=== PATIENT | female | born 1990 | race Caucasian/White ===

== ENCOUNTER 2020-08-10 10:11 | Outpatient (CLI) | payer MEDICAID ==
[~2020-08-10] VITALS: Ht 170.2 cm; Wt 69.5 kg
== END 2020-08-10 10:49 | disposition home or self-care (01) ==
LOC: LDOP 10:11
PROVIDERS: ATTEND Student in an Organized Health Care Education/Training Program
DX: O26.852 Spotting complicating pregnancy, second trimester (principal); Z3A.27 27 weeks gestation of pregnancy
CPT/HCPCS: 99211; G0463

== ENCOUNTER 2020-10-24 16:36 | Outpatient (CLI) | payer MEDICAID ==
[~2020-10-24] VITALS: Ht 172.7 cm; Wt 82.0 kg
== END 2020-10-24 17:21 | disposition home or self-care (01) ==
LOC: LDOP 16:36
PROVIDERS: ATTEND Student in an Organized Health Care Education/Training Program
DX: O42.92 Full-term premature rupture of membranes, unspecified as to length of time between rupture and onset of labor (principal); Z3A.37 37 weeks gestation of pregnancy
CPT/HCPCS: 59025; 84112

== ENCOUNTER 2020-11-01 08:22 | Inpatient (IN) | payer MEDICAID ==
[~2020-11-01] VITALS: Ht 170.2 cm; Wt 81.8 kg
[2020-11-02] MEDS ORDERED: OXYTOCIN 30U/ 0.9% NaCL 500ML 500 ML IV PRN (08:00)
[2020-11-02] MEDS ORDERED: TERBUTALINE 1 MG/ML, 1ML SQ PRN (08:00)
[2020-11-02] MEDS ORDERED: OXYTOCIN 30U/ 0.9% NaCL 500ML 500 ML IV ONE (08:00)
[2020-11-02] MEDS ORDERED: ONDANSETRON 2MG/ML, 2ML IVPush PRN ×2 (08:00→19:30)
[2020-11-02] MEDS ORDERED: SODIUM CHLORIDE FLUSH 10ML SYR IVF PRN (08:00)
[2020-11-02] MEDS ORDERED: TERBUTALINE 1 MG/ML, 1ML IVPush PRN (08:00)
[2020-11-02] MEDS ORDERED: FENTANYL PF 100 MCG/2ML IV PRN (08:00)
[2020-11-02] MEDS ORDERED: FENTANYL PF 100 MCG/2ML IVPush PRN (08:00)
[2020-11-02] MEDS ORDERED: MISOPROSTOL 25 MCG TABLET VG PRN (08:00)
[2020-11-02] MEDS ORDERED: D5%-LACTATED RINGERS 1,000 ML IV SCH (08:00)
[2020-11-02] MEDS: LACTATED RINGERS 1,000 ML IV SCH ×2 (08:00→18:33)
[2020-11-02] MEDS ORDERED: CALCIUM CARBONATE 500 MG TAB.CHEW PO PRN (08:00)
[2020-11-02] MEDS ORDERED: MISOPROSTOL 25 MCG TABLET ONE (08:11)
[2020-11-02] MEDS ORDERED: NEWBORN KIT ONE (08:12)
[2020-11-02 08:14] LABS: BASOPHILS % (AUTO) 1 % (0-1); EOSINOPHILS % (AUTO) 1 % (1-7); LYMPHOCYTES % (AUTO) 22 % (22-44); MEAN CORPUSCULAR HEMOGLOBIN 30.3 pg (27.0-34.8); MEAN CORPUSCULAR HGB CONC 33.6 g/dL (32.4-35.8); MEAN PLATELET VOLUME 8.4 fL (7.4-10.4); MONOCYTES % (AUTO) 6 % (2-9); NEUTROPHILS % (AUTO) 70 % (42-75); PLATELET COUNT 154 x10^3/uL (130-400); RED CELL DISTRIBUTION WIDTH 16.7 % (9.6-15.2)
[2020-11-02 08:48] LABS: AMPHETAMINE SCREEN, URINE Negative (Negative); BARBITURATE SCREEN, URINE Negative (Negative); BENZODIAZEPINE SCREEN, URINE Negative (Negative); CANNABINOID SCREEN, URINE Negative (Negative); COCAINE SCREEN, URINE Negative (Negative); METHADONE SCREEN, URINE Negative (Negative); OPIATE SCREEN, URINE Negative (Negative)
[2020-11-02] MEDS: PLEASE ENTER HEIGHT AND WEIGHT MC SCH ×2 (09:00→17:00)
[2020-11-02 09:19] VITALS: BP 113/61
[2020-11-02] MEDS ORDERED: BUPIVACAINE 0.25% ONE (18:31)
[2020-11-02] MEDS ORDERED: FENTANYL/BUPIV./NS/PF 250 ML EPIDCONT ONE (18:31)
[2020-11-02] MEDS ORDERED: LACTATED RINGERS 1,000 ML IVBOLUS PRN (19:30)
[2020-11-02] MEDS ORDERED: NALOXONE 0.4 MG/ML, 1ML IVPush PRN (19:30)
[2020-11-02] MEDS ORDERED: DIPHENHYDRAMINE 50 MG/ML, 1ML IVPush PRN (19:30)
[2020-11-02] MEDS ORDERED: FENTANYL/BUPIV./NS/PF 250 ML EPIDCONT SCH (19:30)
[2020-11-02] MEDS ORDERED: EPHEDRINE 50 MG/ML, 1ML IVPush PRN (19:30)
[2020-11-02] MEDS ORDERED: LACTATED RINGERS 1,000 ML IV SCH (19:30)
[2020-11-03] MEDS: PLEASE ENTER HEIGHT AND WEIGHT MC SCH (01:00)
[2020-11-03] MEDS ORDERED: SIMETHICONE 80 MG CHEW TAB PO PRN (03:00)
[2020-11-03] MEDS: OXYTOCIN 30U/ 0.9% NaCL 500ML 500 ML IV SCH ×3 (03:00→23:00)
[2020-11-03] MEDS ORDERED: ACETAMINOPHEN 325 MG TABLET PO PRN (03:00)
[2020-11-03 03:30] VITALS: BP 108/72
[2020-11-03] MEDS: IBUPROFEN 600 MG TABLET PO PRN ×3 (03:55→21:04)
[2020-11-03 07:30] VITALS: BP 99/61
[2020-11-03] MEDS: PRENATAL VIT/IRON/FA 1 EACH TABLET PO SCH (07:53)
[2020-11-03] MEDS: DOCUSATE 100 MG CAPSULE PO PRN (07:54)
[2020-11-03 08:37] LABS: MEAN CORPUSCULAR HEMOGLOBIN 30.6 pg (27.0-34.8); MEAN CORPUSCULAR HGB CONC 34.5 g/dL (32.4-35.8); MEAN PLATELET VOLUME 8.5 fL (7.4-10.4); PLATELET COUNT 122 x10^3/uL (130-400); RED BLOOD COUNT 3.92 x10^6/uL (3.82-5.3); RED CELL DISTRIBUTION WIDTH 16.7 % (9.6-15.2)
[2020-11-03 09:10] LABS: <PLATELET ESTIMATE> ADEQUATE; <PLT MORPHOLOGY> NORMAL PLT MORPH; <RBC MORPHOLOGY> NORMAL; BAND#(MANUAL) 1.06 x10^3/uL; BANDS%(MANUAL) 6 % (0-7); LYMPH#(MANUAL) 2.64 x10^3/uL (1-3.4); LYMPHS% (MANUAL) 15 % (22-44); MONOS% (MANUAL) 4 % (2-9); SEGS% (MANUAL) 75 % (42-75)
[2020-11-03] MEDS: OXYcodone/APAP 5/325MG TABLET PO PRN ×4 (11:55→21:04)
[2020-11-03 12:45] VITALS: BP 115/75
[2020-11-03] MEDS ORDERED: RHOGAM FROM BLOOD BANK 1 NOTE EA IM/IV ONE (13:30)
[2020-11-03 16:20] VITALS: BP 115/71
[2020-11-03 20:00] VITALS: BP 123/81
[2020-11-04] VITALS: BP 107/69
[2020-11-04] MEDS: IBUPROFEN 600 MG TABLET PO PRN ×2 (05:01→13:11)
[2020-11-04] MEDS: OXYcodone/APAP 5/325MG TABLET PO PRN ×3 (05:01→13:44)
[2020-11-04 07:55] VITALS: BP 111/69
[2020-11-04] MEDS: DOCUSATE 100 MG CAPSULE PO PRN (09:37)
[2020-11-04] MEDS: PRENATAL VIT/IRON/FA 1 EACH TABLET PO SCH (09:37)
[2020-11-04] MEDS: OXYTOCIN 30U/ 0.9% NaCL 500ML 500 ML IV SCH (09:37)
== END 2020-11-04 15:00 | disposition home or self-care (01) | DRG 807 ==
LOC: LDIP 11-02 06:59 → 2NW 11-03 03:10
PROVIDERS: ADMIT Student in an Organized Health Care Education/Training Program; ATTEND Student in an Organized Health Care Education/Training Program
PROC: 10E0XZZ Delivery of Products of Conception, External Approach (ICD-10-PCS; principal; 2020-11-03)
PROC: 3E0234Z Introduction of Serum, Toxoid and Vaccine into Muscle, Percutaneous Approach (ICD-10-PCS; 2020-11-03)
PROC: 3E0P7VZ Introduction of Hormone into Female Reproductive, Via Natural or Artificial Opening (ICD-10-PCS; 2020-11-03)
PROC: 10907ZC Drainage of Amniotic Fluid, Therapeutic from Products of Conception, Via Natural or Artificial Opening (ICD-10-PCS; 2020-11-03)
PROC: 10H07YZ Insertion of Other Device into Products of Conception, Via Natural or Artificial Opening (ICD-10-PCS; 2020-11-03)
PROC: 0HQ9XZZ Repair Perineum Skin, External Approach (ICD-10-PCS; 2020-11-03)
PROC: 3E0R3BZ Introduction of Anesthetic Agent into Spinal Canal, Percutaneous Approach (ICD-10-PCS; 2020-11-03)
PROC: 00HU33Z Insertion of Infusion Device into Spinal Canal, Percutaneous Approach (ICD-10-PCS; 2020-11-03)
DX: O99.284 Endocrine, nutritional and metabolic diseases complicating childbirth (principal); Z37.0 Single live birth; E55.9 Vitamin D deficiency, unspecified; Z3A.39 39 weeks gestation of pregnancy; Z82.3 Family history of stroke; Z83.3 Family history of diabetes mellitus; O26.893 Other specified pregnancy related conditions, third trimester; Z67.91 Unspecified blood type, Rh negative; Z20.822 Contact with and (suspected) exposure to COVID-19; D64.9 Anemia, unspecified; O99.02 Anemia complicating childbirth; Z88.1 Allergy status to other antibiotic agents; O70.0 First degree perineal laceration during delivery
CPT/HCPCS: 36415; J7121; 80307; 85025; 85461; 86592; 86850; 86900; 87635; G0378; J2790; J2590; J7120